=== PATIENT | female | born 1965 | race Native Hawaiian/Other Pacific Islander ===

== ENCOUNTER 2020-09-21 20:24 | Observation (INO) | payer BC ==
[~2020-09-21] VITALS: Ht 165.1 cm; Wt 83.1 kg
[2020-09-21 20:38] VITALS: BP 166/89; TEMP 98.4
[2020-09-21 21:29] LABS: POTASSIUM 3.7 mmol/L (3.6-5.2); SODIUM 143 mmol/L (136-145)
[2020-09-21 21:30] LABS: PLATELET COUNT 266 K/uL (152-353)
[2020-09-21 21:37] LABS: PARTIAL THROMBOPLASTIN TIME 22.3 SECONDS (24.5-33.6)
[2020-09-21 23:19] VITALS: BP 152/89; TEMP 98.2; Ht 165.1 cm; Wt 83.1 kg
[2020-09-22] VITALS: BP 152/89; TEMP 98.2
[2020-09-22] MEDS ORDERED: EZET10TA13 PO (01:55)
[2020-09-22] MEDS ORDERED: LISITAB PO (01:58)
[2020-09-22] MEDS ORDERED: NORGEST/ETH1 PO (02:02)
[2020-09-22] MEDS ORDERED: TRICOR145 M1 PO (02:04)
[2020-09-22] MEDS ORDERED: FLUOXETINE20 MG PO (02:04)
[2020-09-22] MEDS ORDERED: METFORMIN HCL500 M1 PO (02:08)
[2020-09-22] MEDS ORDERED: AMOX875T8 PO (02:10)
[2020-09-22 04:00] VITALS: BP 106/66; TEMP 98.3
[2020-09-22 08:00] VITALS: BP 103/68; TEMP 98.1
[2020-09-22 12:00] VITALS: BP 106/72; TEMP 98.1
[2020-09-23 00:25] VITALS: BP 141/84; TEMP 98.3
[2020-09-23 04:00] VITALS: BP 125/75; TEMP 98.3
[2020-09-23 08:00] VITALS: BP 130/77; TEMP 98.5
[2020-09-23 12:00] VITALS: BP 127/77; TEMP 98.3
[2020-09-23] MEDS ORDERED: CLOP75TA2 PO (14:36)
[2020-09-23] MEDS ORDERED: COATED ASPIRIN325 MG PO (14:40)
[2020-09-23 16:00] VITALS: BP 127/73; TEMP 98
== END 2020-09-23 15:30 | disposition home or self-care (01) ==
LOC: ED 20:24 → MED/SURG 21:45
PROVIDERS: Hospitalist; ADMIT Internal Medicine; ATTEND Internal Medicine
DX: R07.89 Other chest pain (principal); I10 Essential (primary) hypertension; E78.49 Other hyperlipidemia; F32.89 Other specified depressive episodes
CPT/HCPCS: 80053; 82550; 82948; 83880; 84484; 85027; 85610; 85730; 87635; 93005; 96372; 99220; 99283; G0378; J1644; J1650; U0003

== ENCOUNTER 2020-11-27 14:18 | Observation (INO) | payer BC ==
[~2020-11-27] VITALS: Ht 165.1 cm; Wt 82.3 kg
[~2020-11-27 14:18] MED LIST: AMOX875T8 PO; CLOP75TA2 PO; COATED ASPIRIN325 MG PO; EZET10TA13 PO; FLUOXETINE20 MG PO; LISITAB PO; METFORMIN HCL500 M1 PO; NORGEST/ETH1 PO; TRICOR145 M1 PO
[2020-11-27 14:19] VITALS: BP 138/82; TEMP 98.1
[2020-11-27 15:00] VITALS: BP 143/85
[2020-11-27 15:02] LABS: PLATELET COUNT 255 K/uL (152-353)
[2020-11-27 15:22] LABS: POTASSIUM 3.8 mmol/L (3.6-5.2)
[2020-11-27 15:30] VITALS: BP 132/84
[2020-11-27 19:17] VITALS: BP 142/84; TEMP 97.8; Ht 165.1 cm; Wt 82.3 kg
[2020-11-27] MEDS ORDERED: ASA LOW DOSE81 MG PO (19:26)
[2020-11-27] MEDS ORDERED: METOPROLOL25 M1 PO (19:30)
[2020-11-27] MEDS ORDERED: LIPITOR40 MG PO (19:30)
[2020-11-27 20:00] VITALS: BP 131/81; TEMP 97.2
[2020-11-28] VITALS: BP 109/69; TEMP 97.8
[2020-11-28 04:00] VITALS: BP 110/73; TEMP 97.9
[2020-11-28 08:00] VITALS: BP 118/72; TEMP 98.1
[2020-11-28 08:54] LABS: PLATELET COUNT 227 K/uL (152-353)
--- NOTE | 2020-11-28 12:13 | NUR ---
PATIENT DISCHARGED PER DR. LONG. NO COMPLAINTS OF PAIN AT THIS TIME. ORDER FOR FLUOXETINE ADMINISTERED PRIOR TO DISCHARGE. HOME MEDICATIONS TAKEN HOME WITH PATIENT. DISCHARGE EDUCATION GIVEN. FOLLOW UP APPT MADE. PATIENT AWARE AND ACKNOWLEDGED UNDERSTANDING. PATIENT TRANSPORTED TO CAR VIA WHEEL CHAIR AT 1130.
== END 2020-11-28 11:30 | disposition home or self-care (01) ==
LOC: ED 14:18 → MED/SURG 15:45
PROVIDERS: Hospitalist; ADMIT Internal Medicine Endocrinology, Diabetes & Metabolism; ATTEND Internal Medicine Endocrinology, Diabetes & Metabolism
DX: R07.89 Other chest pain (principal); I25.10 Atherosclerotic heart disease of native coronary artery without angina pectoris; E11.9 Type 2 diabetes mellitus without complications; K21.9 Gastro-esophageal reflux disease without esophagitis; E78.49 Other hyperlipidemia; I10 Essential (primary) hypertension; E83.52 Hypercalcemia
CPT/HCPCS: 36415; 80048; 80053; 82306; 82310; 82330; 82550; 83880; 83970; 84484; 85027; 85610; 85730; 87635; 93005; 99220; 99284; G0378; J1650; J1815; J2270; U0003

== ENCOUNTER 2021-01-23 16:13 | Emergency (ER) | payer BC ==
[~2021-01-23] VITALS: Ht 165.1 cm; Wt 82.1 kg
[~2021-01-23 16:13] MED LIST changes: +ASA LOW DOSE81 MG PO; +LIPITOR40 MG PO; +METOPROLOL25 M1 PO
[2021-01-23 16:49] LABS: PLATELET COUNT 230 K/uL (152-353)
[2021-01-23 16:56] LABS: POTASSIUM 3.6 mmol/L (3.6-5.2)
[2021-01-23 17:06] LABS: PARTIAL THROMBOPLASTIN TIME 24.8 SECONDS (24.5-33.6)
[2021-01-23 18:30] VITALS: BP 137/76; TEMP 98.3
== END 2021-01-23 18:30 | disposition home or self-care (01) ==
LOC: ED 16:13
PROVIDERS: Hospitalist
DX: S00.83XA Contusion of other part of head, initial encounter (principal); S00.81XA Abrasion of other part of head, initial encounter; S02.2XXA Fracture of nasal bones, initial encounter for closed fracture; W18.09XA Striking against other object with subsequent fall, initial encounter; Y92.524 Gas station as the place of occurrence of the external cause
CPT/HCPCS: 80048; 80320; 85027; 85610; 85730; 96372; 99283; J0690; J2270; J2405; Q9963

== ENCOUNTER 2021-03-02 09:14 | Outpatient (CLI) | payer OTHER | END 2021-03-02 20:53 | disposition home or self-care (01) | LOC: RAD 09:14 | PROVIDERS: ATTEND Nurse Practitioner Family | DX: M25.471 Effusion, right ankle (principal) ==

== ENCOUNTER 2021-10-18 20:21 | Observation (INO) | payer BC ==
[~2021-10-18] VITALS: Ht 165.1 cm; Wt 81.6 kg
[~2021-10-18 20:21] MED LIST changes: -FLUOXETINE20 MG PO; +FLUOXETINE40 MG PO; +LISINOPRIL/HCTZ PO; -LISITAB PO
[2021-10-18 20:25] VITALS: BP 144/64; TEMP 98.8
[2021-10-18 21:27] LABS: PLATELET COUNT 237 K/uL (152-353)
[2021-10-18 21:30] VITALS: BP 114/67
[2021-10-18 21:47] LABS: POTASSIUM 3.6 mmol/L (3.6-5.2)
[2021-10-18 21:50] LABS: PARTIAL THROMBOPLASTIN TIME 24.1 SECONDS (24.5-33.6)
[2021-10-18 22:30] VITALS: BP 119/62
[2021-10-18 23:00] VITALS: BP 137/73
[2021-10-18 23:30] VITALS: BP 131/75
--- NOTE | 2021-10-19 00:20 | NUR ---
CLIENT ARRIVED ON UNIT VIA WHEELCHAIR. AMBULATED TO BED AND AROUND ROOM. CLIENT REPORTS HAVING CHEST PAIN THAT RADIATED DOWN RIGHT ARM AND SHOULDER. DUE TO CLIENT'S CARDIAC HISTORY, CLIENT THOUGHT IT BEST TO GET CHECKED OUT. 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 CLIENT DENIES CHEST PAIN AT THIS TIME. HEART SOUNDS WNL. S1/S2 NOTED. APPLIED TELE MONITOR TO CLIENT, REPORTING ACCURATELY. IV ACCESS NOTED 20G TO LAC, INITIATED FLUIDS PER ORDERS. CLIENT REQUEST SOMETHING TO EAT. PROVIDED MEAL. ORDERS REVIEWED. CLIENT ORIENTED TO ROOM, FACILITY AND CALL LIGHT.
--- NOTE | 2021-10-19 01:40 | NUR ---
ROUNDING ON CLIENT, CLIENT REPORTS SOME MILD CHEST DISCOMFORT AFTER EATING, PROVIDED ORDERED GI COCKTAIL.
[2021-10-19 01:43] VITALS: BP 139/71; TEMP 97.9; Ht 165.1 cm; Wt 81.6 kg
--- NOTE | 2021-10-19 02:16 | NUR ---
CLIENT REPORTS RELIEF OF CHEST DISCOMFORT.
[2021-10-19 04:00] VITALS: BP 123/72; TEMP 97.8
--- NOTE | 2021-10-19 05:30 | NUR ---
PATIENT C/O AIR CONDITIONER TOO LOUD, MOVED CLIENT TO 1114. NOTIFIED ADMISSIONS.
[2021-10-19 08:00] VITALS: BP 133/76; TEMP 98
[2021-10-19] MEDS ORDERED: LIPITOR80 MG PO (10:22)
[2021-10-19] MEDS ORDERED: WOMENS DAILY PO (10:32)
[2021-10-19] MEDS ORDERED: IBU-200200 MG PO (10:33)
[2021-10-19 12:00] VITALS: BP 124/65; TEMP 98.2
[2021-10-19] MEDS ORDERED: CLOPIDOGREL75 MG PO (12:46)
--- NOTE | 2021-10-19 12:53 | NUR ---
IN EARILER TO DISCUSS PLAN OF CARE THIRD SET CE DRAWN NEGATIVE RESULT.PATIENT WILL BE DISCHARGED HOME TODAY.SALINE LOCK REMOVED APPLIED 2X2 SECURED WITH TAPE TOLERATED WELL.DAUGHTER PRESENT IN ROOM WITH Dariana ALVAREZ
--- NOTE | 2021-10-19 13:40 | NUR ---
DISCHARGE INSTRUCTIONS GIVEN AND SIGNED.APPTOINTMENT CARD GIVEN FOR ON OCT 26 AT 2.10 PM FOR POSSIBLE EDG ON OUTPATIENT BASIS.ALSO RX CALLED INTO [facility] PER FOR SOMETHING FOR GERD.TELE REMOVED RETURNED TO [email or web address]
[2021-10-19] MEDS ORDERED: DEXL60CA4 PO (14:06)
--- NOTE | 2021-10-19 14:10 | NUR ---
[facility] PER DAUGHTER.PATIENT WILL RETURN TO HOSPITIAL TO ON AIR TALENT MEDICATION FROM PHARMACY.[facility]
== END 2021-10-19 14:30 | disposition home or self-care (01) ==
LOC: ED 20:21 → MED/SURG 22:55
PROVIDERS: ADMIT Family Medicine; ATTEND Internal Medicine
DX: R07.89 Other chest pain (principal); R10.13 Epigastric pain; I25.10 Atherosclerotic heart disease of native coronary artery without angina pectoris; R13.19 Other dysphagia; K21.9 Gastro-esophageal reflux disease without esophagitis; I10 Essential (primary) hypertension; E78.49 Other hyperlipidemia; E11.9 Type 2 diabetes mellitus without complications
CPT/HCPCS: 36415; 80053; 80307; 81000; 82550; 84484; 85027; 85610; 85730; 87635; 93005; 96360; 96361; 96374; 96375; 99220; 99284; G0378; J1650; J1885; J2270; U0003

== ENCOUNTER 2022-01-04 09:22 | Outpatient (CLI) | payer BC ==
[~2022-01-04 09:22] MED LIST changes: +CLOPIDOGREL75 MG PO; +DEXL60CA4 PO; +IBU-200200 MG PO; +LIPITOR80 MG PO; +WOMENS DAILY PO
== END 2022-01-04 19:36 | disposition home or self-care (01) ==
LOC: US 09:22
PROVIDERS: ATTEND Registered Nurse
DX: R74.8 Abnormal levels of other serum enzymes (principal)